=== PATIENT | male | born 1955 | race Caucasian/White ===

== ENCOUNTER → 2019-10-30 16:53 | Outpatient (CLI) | payer OTHER, SELFPAY ==
--- NOTE | 2019-10-30 16:55 | DI.MRI.S_ITS ---
PROCEDURE: MR HEAD/BRAIN WO/W CON INDICATIONS: Semi acute worsening of cognition with hx of melanoma TECHNIQUE: Noncontrast axial T1 spin echo, axial T2 fast spin echo, sagittal and axial FLAIR, coronal T2 fast spin echo, axial gradient echo, axial diffusion and ADC through the brain. After the administration of contrast, axial and coronal 3D VIBE or T1 spin echo with fat saturation through the brain. COMPARISON: [facility], MR, MR BRAIN W&WO CON, 06/29/2016, 14:37. FINDINGS: Image quality: Excellent. CSF Spaces: Basal cisterns are patent. No extra-axial fluid collections. Ventricles are normal in size and shape. Brain: No midline shift. No intracranial bleeds or masses. No abnormal intracranial enhancement. The brainstem appears normal. Diffusion-weighted images demonstrate no acute ischemic insults. No chronic ischemic insults suggestive of intervening stroke is seen. There are numerous small rounded foci of elevated FLAIR signal in the white matter, as was previously the case on comparison MRI from 06/29/16. No disease show abnormal contrast enhancement and therefore are considered sequela of chronic microvascular atherosclerotic change.. Normal intravascular flow voids are present. Skull and face: Calvarial marrow is normal in signal. Orbits appear normal. Sinuses: Sinuses and mastoids appear clear. IMPRESSION: No enhancing mass lesion found. No metastatic disease is suspected. Again noted is a pattern of numerous small rounded foci of elevated FLAIR signal consistent with moderate to moderately severe but chronic microvascular atherosclerotic change. Dictated by: Tera Paredes M.D. on 10/31/2019 at 8:11 Approved by: Tera Paredes M.D. on 10/31/2019 at 8:17
== END ==
PROVIDERS: Family Provider Family Medicine; PCP Family Medicine; Referring Provider Psychiatry & Neurology Psychiatry; Visit Provider Psychiatry & Neurology Psychiatry
DX: R41.89 Other symptoms and signs involving cognitive functions and awareness (principal); Z85.820 Personal history of malignant melanoma of skin
CPT/HCPCS: 70553; A9579

== ENCOUNTER 2020-02-10 16:01 | Emergency (ER) | payer OTHER, SELFPAY ==
--- NOTE | 2020-02-10 16:12 | ED_ITS ---
HPI - General Adult General Chief complaint: Psychiatric Symptoms Stated complaint: psych issues Time Seen by Provider: 02/10/20 16:12 History of Present Illness HPI narrative: 64-year-old gentleman with a prior psychiatric history complicated by 3 rounds of chemotherapy for melanoma with depression, generalized anxiety disorder all exacerbated by likely developing Alzheimer's type dementia. Presents with increasing obsessive-compulsive complaints today including obsessively urinating and checking that he is urinating appropriately, rambling thought process, emotional lability and inability to stay focused with continued increasing anxiety. With the obsessive urination he is drinking approximately 16 oz of water, has no dysuria or hematuria and is really focused on sneaking out (he is not clear who he is ?sneaking? from) to make sure that he can simply void. Recently he was switched from bupropion to venlafaxine. He has continued with Ativan. His feels that when he takes his scheduled Ativan and venlafaxine he actually is getting worse. They are followed by Dr. Alcala, psychiatry. He presents today requesting help but is not quite sure what form of help he actually needs and is not sure if he actually feels that he needs to be in the hospital. He is having passive suicidal ideation without specific plan and states that he would not kill himself because it is against his mandaeism. Does have good support with his who is present with his ER visit today. Related Data Home Medications Medication Instructions Recorded Confirmed amlodipine 10 mg tablet 10 mg PO DAILY 01/07/18 01/14/20 propranolol 20 mg tablet 20 mg PO BID 01/07/18 01/14/20 coconut oil 1,000 mg capsule mg PO 10/16/19 01/14/20 mecobalamin (vitamin B12) 5,000 5,000 mcg PO DAILY 10/16/19 01/14/20 mcg lozenge Previous Rx's Medication Instructions Recorded lorazepam 0.5 mg tablet 0.5 mg PO TID PRN #90 tab 01/14/20 quetiapine [Seroquel] 25 mg PO BID #60 tab 02/10/20 venlafaxine 75 mg capsule,extended 75 mg PO DAILY #30 cap 02/10/20 release 24 hr Allergies Allergy/AdvReac Type Severity Reaction Status Date / Time erythromycin base Allergy Unknown Verified 01/14/20 15:13 [ERYTHROMYCIN BASE] indomethacin AdvReac Mild confusion Verified 01/14/20 15:13 Review of Systems Review of Systems Narrative: Pertinent positive and negative findings as per HPI Remainder of review of systems is otherwise unremarkable for Constitutional: Fevers, chills, weakness ENT: No sore throat, neck pain, ear pain CV: Chest pain, palpitations, dyspnea on exertion Respiratory: Cough, wheeze, dyspnea GI: Nausea, vomiting, diarrhea, change in bowel habits, black or bloody stools : Dysuria, hematuria, flank pain MS: Muscle weakness, numbness, joint swelling or warmth Skin: Rashes, nonhealing lesions Neuro: Syncope, dizziness, tingling Patient History Medical History (Updated 02/10/20 @ 17:03 by Beth Sierra MD) Dementia (Acute) Generalized anxiety disorder (Acute) Major depression, chronic (Acute) Melanoma (Acute) Social History Smoking Status: Former smoker Smoking Status: Former smoker Exam Narrative Exam Narrative: General: Alert, anxious, emotionally labile, cooperative Respiratory: Able to speak in full sentences, no obvious respiratory distress Skin: No obvious rashes, warm and dry Neurologic: Grossly intact no obvious asymmetries or abnormalities Psych, perseverating questions and thought process, poor insight, no auditory or visual hallucinations Initial Vital Signs Initial Vital Signs: Vital Signs Temperature 98.5 F 02/10/20 16:30 Pulse Rate 78 02/10/20 16:30 Respiratory Rate 19 02/10/20 16:30 Blood Pressure 179/86 H 02/10/20 16:30 Pulse Oximetry 97 02/10/20 16:30 Scores ABCD2 Citation: Lancet. 2006Jun 30;369(8263):283-92. Validation and refinement of scores to predict very early stroke risk after transient ischaemic attack. Trav SC1, Chetan PM, Vaibhav MN, Herbie MF, Ofelia JS, Gerry AL, Aamir S. Course Orders Ordered: Discontinued Medications Quetiapine Fumarate (Seroquel) 25 mg PO NOW ONE Stop: 02/10/20 17:01 Vital Signs Vital signs: Vital Signs - 8 hr 02/10/20 16:30 Temperature 98.5 F Pulse Rate 78 Respiratory Rate 19 Blood Pressure 179/86 H Pulse Oximetry 97 Medical Decision Making Medical Records Medical records reviewed: Yes I reviewed the patient's medical records. MDM Narrative Medical decision making narrative: Discussed his care with Dr Alcala. Suggested adding 25mg BID of Seroquel. Will give first dose now and rx for 30 days. Next apt with Dr Alcala is 02/25. They can certainly call Dr. Alcala if they have other concerns and he is welcome to return the emergency department. Patient's was quite comfortable with all of these as an option. Discharge Plan Departure Patient Disposition: Home Clinical Impression: Generalized anxiety disorder, Acute anxiety Instructions: DI for Anxiety -- Adult Activity Restrictions/Additional Instructions: Thank you for coming in today I wish that today were going better for you. After talking with Dr. Alcala, he has suggested trying Seroquel to help with anxiety. We are going to start with a very small dosing you have been given the 1st dose in the emergency department. It will be 25 mg morning and night in addition to the venlafaxine and Ativan you are currently taking. A prescription for this has been electronically transmitted to [facility] in [place] for you. Please keep your scheduled February [address] Alcala If you have further questions or concerns you can certainly call his office and leave a message. If things are getting dramatically worse or you are feeling unsafe, you may return to the emergency department I wish you the best Prescriptions: New quetiapine [Seroquel] 25 mg tablet 25 mg PO BID Qty: 60 RF: 0 No Action coconut oil 1,000 mg capsule PO RF: 0 mecobalamin (vitamin B12) 5,000 mcg lozenge 5,000 mcg PO DAILY RF: 0 lorazepam 0.5 mg tablet 0.5 mg PO TID PRN (Reason: anxiety) Qty: 90 RF: 0 venlafaxine 75 mg capsule,extended release 24hr 75 mg PO DAILY Qty: 30 RF: 0 propranolol 20 mg tablet 20 mg PO BID RF: 0 amlodipine 10 mg tablet 10 mg PO DAILY RF: 0 Referrals: Aida Pham MD [Primary Care Provider] -
[2020-02-10 16:30] VITALS: BP 179/86; PULSE 78; RESP 19; TEMP 36.9; O2SAT 97; BMI 21.1
[2020-02-10] MEDS: QUETIAPINE 25 MG TABLET PO (17:09)
[2020-02-10 17:17] VITALS: BP 161/78
== END 2020-02-10 17:18 | disposition home or self-care (01) ==
PROVIDERS: Emergency Provider Emergency Medicine; Family Provider Family Medicine; PCP Family Medicine; Referring Provider Psychiatry & Neurology Psychiatry
DX: F41.1 Generalized anxiety disorder (principal)
CPT/HCPCS: 99283

== ENCOUNTER 2021-07-01 09:59 | Emergency (ER) | payer OTHER, SELFPAY ==
[2021-07-01 10:02] VITALS: BP 163/97; PULSE 78; RESP 15; TEMP 36.2; O2SAT 99
[2021-07-01] MEDS: QUETIAPINE 25 MG TABLET 50 MG PO (10:11)
[2021-07-01 11:06] VITALS: PULSE 68; RESP 18; O2SAT 96
--- NOTE | 2021-07-01 13:44 | ED_ITS ---
HPI - Psych General Chief Complaint: Psychiatric Symptoms Stated Complaint: psychisis & suicidal Time Seen by Provider: 07/01/21 10:09 Source: EMS Mode of arrival: EMS Limitations: altered mental status History of Present Illness HPI Narrative: The patient arrives by EMS, quite upset. He has a history of psychosis, and a history of schizophrenia. His doctor recently reduced his dose of Seroquel from 100 mg 3 times a day to 100 mg 2 times daily. He is quite upset, vaguely stating I cannot go on.He denied to myself and the triage nurse that he is not suicidal or homicidal. He is oriented to person, place and time. He is not a clear historian. The mental health history was obtained from his spouse. His mental health provider is Dr. Alcala. He and the have been in contact with Dr. Alcala [address] Alcala left a message yesterday to increase the Seroquel back to t.i.d. dosing. That message was not obtained until after arrival here in the ER. He denies acute illness. His no headache, sore throat, cough or dyspnea. He has no fever. He urinated on the floor while here. His indicates he is fixated on his urinary output. He has no acute illness. Lab evaluation is declined. Related Data Home Medications Medication Instructions Recorded Confirmed propranolol 20 mg tablet 20 mg PO BID 01/07/18 05/03/21 coconut oil 1,000 mg capsule mg PO 10/16/19 05/03/21 amlodipine 2.5 mg tablet 2.5 mg PO DAILY 10/06/20 05/03/21 baryta carb SUBLINGUAL .x 2 PRN 05/03/21 Previous Rx's Medication Instructions Recorded lorazepam 0.5 mg tablet 0.5 mg PO DAILY PRN #60 tab 02/14/21 venlafaxine 75 mg capsule,extended 150 mg PO DAILY #60 cap 02/14/21 release 24 hr paroxetine HCl 40 mg tablet 40 mg PO DAILY #30 tab 05/03/21 quetiapine 25 mg tablet See Rx Instructions .ROUTE 06/01/21 .COMPLEX #180 tab Allergies Allergy/AdvReac Type Severity Reaction Status Date / Time erythromycin base Allergy Unknown Verified 05/03/21 09:46 [ERYTHROMYCIN BASE] indomethacin AdvReac Mild confusion Verified 05/03/21 09:46 Review of Systems Constitutional Constitutional: Denies chills, Denies headache(s) and Denies weakness Eyes Eyes: Denies change in vision ENT Ears, Nose, Mouth, and Throat: Denies headache(s) and Denies sore throat Cardiovascular Cardiovascular: Denies chest pain and Denies rapid heart rate Respiratory Respiratory: Denies chest congestion and Denies cough Neurologic Neurologic: Denies headache(s) and Denies weakness Psychiatric Psychiatric: Reports anxiety, Denies homicidal ideation and Denies suicidal ideation Patient History Medical History Dementia Generalized anxiety disorder Major depression, chronic Melanoma Social History Smoking Status: Former smoker Smoking Status: Former smoker alcohol intake frequency: 0-2 drinks per day Substance Use Type: does not use Exam Initial Vital Signs Initial Vital Signs: Vital Signs Temperature 97.1 F L 07/01/21 10:02 Pulse Rate 78 07/01/21 10:02 Respiratory Rate 15 07/01/21 10:02 Blood Pressure 163/97 H 07/01/21 10:02 Pulse Oximetry 99 07/01/21 10:02 Const General: cooperative, in distress and other (Anxious yet cooperative.) [facility] Head: normocephalic and atraumatic Mouth: oral mucosae normal Neck Neck: normal visual inspection and full ROM Resp Effort & Inspection: normal respiratory effort Auscultation: clear to auscultation bilaterally Cardio Rate: regular rate Rhythm: regular rhythm Heart Sounds: S1 normal, S2 normal, no click, no gallops, no murmurs and no rubs GI Inspection: normal to inspection Back/Spine/Pelvis Back: normal to inspection, No back tenderness and No crepitance Skin General: no rashes or lesions noted Neuro General: patient alert, patient oriented x3 and no focal motor deficits Extrem General: normal to inspection, full ROM and no pedal edema Psych Appearance: disheveled Speech and Movement: agitated and speech not slurred Mood: anxious mood Course Course Course Narrative: He calmed quickly after receiving Seroquel 100 mg p.o.. He denies suicidal ideation. He showed reservations about leaving, although has no reason to stay. He eventually agreed to leave with his who is maintaining communication with his psychiatrist. Orders Ordered: Discontinued Medications Quetiapine Fumarate (Quetiapine 25 Mg Tablet) 50 mg PO NOW ONE Stop: 07/01/21 10:06 Last Admin: 07/01/21 10:11 Dose: 50 mg Documented by: MAYRA Vital Signs Vital signs: Vital Signs - 8 hr 07/01/21 10:02 07/01/21 11:06 Temperature 97.1 F L Pulse Rate 78 68 Respiratory Rate 15 18 Blood Pressure 163/97 H Pulse Oximetry 99 96 Discharge Plan Departure Patient Disposition: Home Clinical Impression: Psychosis Instructions: DI for Psychosis Activity Restrictions/Additional Instructions: Resume your prior dose of Quetiapine, take the medication [address] Alcala this afternoon to arrange follow-up appointment. Return here as necessary. Prescriptions: No Action coconut oil 1,000 mg capsule PO 0RF amlodipine 2.5 mg tablet 2.5 mg PO DAILY 0RF baryta carb tablet sublingual .x 2 [id number] Label Comments: Purchased and administered x two with improvement in memory noted Rx Instructions: Insert pellet under tongue to dissolve venlafaxine 75 mg capsule,extended release 24hr 150 mg PO DAILY Qty: 60 3RF lorazepam 0.5 mg tablet 0.5 mg PO DAILY PRN (Reason: anxiety) Qty: 60 2RF paroxetine HCl 40 mg tablet 40 mg PO DAILY Qty: 30 3RF quetiapine 25 mg tablet See Rx Instructions .ROUTE .COMPLEX Qty: 180 0RF Dose Instruction: TAKE 2 TABLETS BY MOUTH THREE TIMES DAILY Rx Instructions: TAKE 2 TABLETS BY MOUTH THREE TIMES DAILY propranolol 20 mg tablet 20 mg PO BID 0RF Referrals: Anamaria Gatica PA-C [Primary Care Provider] -
== END 2021-07-01 14:03 | disposition home or self-care (01) ==
PROVIDERS: Emergency Provider Emergency Medicine; Family Provider Family Medicine; PCP Physician Assistant Medical
DX: F29 Unspecified psychosis not due to a substance or known physiological condition (principal); Z87.891 Personal history of nicotine dependence
CPT/HCPCS: 99283